=== PATIENT | male | born 1965 | race Hispanic/Latino ===

== ENCOUNTER 2020-10-30 14:27 | Emergency (ER) | payer OTHER ==
--- NOTE | 2020-10-30 14:48 | Event Note ---
ED Screening Note Date of service: 10/30/20 Time: 14:49 ED Screening Note: 54-year-old male presents to the emergency room for left lower leg swelling and pain for over a week. Patient reports that he had an ultrasound done at [facility] radiology for DVT concern and resulted positive. Patient also reports he is Covid positive and has had shortness of breath last test was on 10/12/2020. This initial assessment/diagnostic orders/clinical plan/treatment(s) is/are subject to change based on patients health status, clinical progression and re- assessment by fellow clinical providers in the ED. Further treatment and workup at subsequent clinical providers discretion. Patient/guardian urged not to elope from the ED as their condition may be serious if not clinically assessed and managed. Initial orders include:
[2020-10-30 15:39] LABS: Hematocrit 41.1 % (35.5-45.6); Mean Corpuscular HGB Conc 34 % (32-34); Mean Corpuscular Volume 95 fl (84-94); Platelet Count 447 K/mm3 (140-440); Red Blood Count 4.32 M/mm3 (3.65-5.03); Red Cell Distribution Width 14.8 % (13.2-15.2)
[2020-10-30 15:49] LABS: INR 1.05 (0.87-1.13)
[2020-10-30 15:50] LABS: Partial Thromboplastin Time 26.3 Sec. (24.2-36.6)
--- NOTE | 2020-10-30 15:56 | XRay Report ---
CHEST 1 VIEW 10/30/2020 3:34 PM INDICATION / CLINICAL INFORMATION: sob. COMPARISON: None available. FINDINGS: SUPPORT DEVICES: None. HEART / MEDIASTINUM: No significant abnormality. LUNGS / PLEURA: No significant pulmonary or pleural abnormality. No pneumothorax. ADDITIONAL FINDINGS: No significant additional findings. IMPRESSION: No acute abnormality. Signer Name: Yonatan Hubbard MD Signed: 10/30/2020 3:52 PM Workstation Name: [id number]
[2020-10-30 16:14] LABS: Alanine Aminotransferase 170 units/L (7-56); Albumin 3.3 g/dL (3.9-5); BUN/Creatinine Ratio 27; Blood Urea Nitrogen 19 mg/dL (9-20); Calcium 8.8 mg/dL (8.4-10.2); Hemolysis Index 14
[2020-10-30] MEDS ORDERED: SODIUM CHLORIDE 0.9% 250ML 250 ML IV ONE (16:14)
[2020-10-30] MEDS ORDERED: ENOXAPARIN 100 MG/1 ML INJ SUB-Q STA (16:14)
[2020-10-30] MEDS ORDERED: oxyCODONE /ACETAMINOPHEN 5-325MG TAB PO ONE (16:16)
--- NOTE | 2020-10-30 16:16 | Emergency Department Report ---
ED General Adult HPI - General Chief complaint: Extremity Problem,Nontraumatic Stated complaint: LEG SWELLING;POSITIVE FOR DVT PUI?: Yes Time Seen by Provider: 10/30/20 15:09 Source: patient, RN notes reviewed Mode of arrival: Ambulatory Limitations: No Limitations - History of Present Illness Initial comments: The patient was evaluated in the emergency department for symptoms described in the history of present illness. He/she was evaluated in the context of the global COVID-19 pandemic, which necessitated consideration that the patient might be at risk for infection with the virus that causes COVID-19. Institutional protocols and algorithms that pertain to the evaluation of patients at risk for COVID-19 are in a state of rapid change based on information released by regulatory bodies including the CDC and federal and state organizations. These policies and algorithms were followed during the patient's care in the emergency department. Please note that these policies, procedures and recommendations changed on a rapid basis. During the entire history and physical examination, I had on complete personal protective equipment. The patient is a 54-year-old gentleman. He is not known to myself previously. Patient was diagnosed with COVID-19 in October 12 of this month. He does not have a local primary care doctor, but goes to an outpatient urgent care center. He had a lower extremity DVT study obtained by his outpatient provider, today, which demonstrated extensive DVT noted in the left lower extremity, from the right common femoral vein, to the popliteal vein, indicating acute DVT. Normal right lower extremity duplex study. Patient complains of left lower extremity pain and swelling for the past couple days to about a week. No significant headache. No chest pain. No abdominal pain. Positive shortness of breath. No hematemesis. No bright red blood per rectum. Currently taking Eliquis, 5 mg on a daily basis. Had intermittent shortness of breath. This has been going on since Covid. He was referred to the emergency room by the aforementioned provider for further evaluation. -: Gradual, days(s) Location: left, lower extremity Consistency: constant Improves with: rest Worsens with: movement - Related Data Home Medications Medication Instructions Recorded Confirmed Last Taken Apixaban [Eliquis] 5 mg PO DAILY 10/30/20 10/30/20 Unknown Aspirin 325 mg PO QDAY 10/30/20 10/30/20 Unknown Ipratropium/Albuterol Sulfate 1 ampul IH Q6HR PRN 10/30/20 10/30/20 Unknown [DUONEB *Not for PRN Use*] Montelukast [Singulair] 10 mg PO DAILY 10/30/20 10/30/20 Unknown Promethazine [Phenergan 6.25 mg/5 10 ml PO Q6H PRN 10/30/20 10/30/20 Unknown ml ORAL LIQ] methOCARBAMOL [Robaxin TAB] 500 mg PO Q6H PRN 10/30/20 10/30/20 Unknown Previous Rx's Medication Instructions Recorded Last Taken Type Apixaban [Eliquis] 5 mg PO BID #60 tablet 10/30/20 Unknown Rx Apixaban [Eliquis] 10 mg PO BID #24 tablet 10/30/20 Unknown Rx Allergies Allergy/AdvReac Type Severity Reaction Status Date / Time Penicillins Allergy Unknown Verified 10/30/20 14:36 ED Review of Systems ROS: Stated complaint: LEG SWELLING;POSITIVE FOR DVT Other details as noted in HPI Constitutional: malaise. denies: fever Eyes: denies: eye discharge ENT: denies: congestion Respiratory: shortness of breath. denies: wheezing Cardiovascular: denies: chest pain, syncope Gastrointestinal: denies: abdominal pain, hematemesis, melena, hematochezia Genitourinary: denies: dysuria Musculoskeletal: arthralgia, myalgia Skin: denies: lesions Neurological: weakness. denies: numbness, paresthesias Hematological/Lymphatic: denies: easy bleeding ED Past Medical Hx - Past Medical History Previous Medical History?: No - Surgical History Past Surgical History?: No - Medications Home Medications: Home Medications Medication Instructions Recorded Confirmed Last Taken Type Apixaban [Eliquis] 5 mg PO BID #60 tablet 10/30/20 Unknown Rx Apixaban [Eliquis] 5 mg PO DAILY 10/30/20 10/30/20 Unknown History Apixaban [Eliquis] 10 mg PO BID #24 tablet 10/30/20 Unknown Rx Aspirin 325 mg PO QDAY 10/30/20 10/30/20 Unknown History Ipratropium/Albuterol Sulfate 1 ampul IH Q6HR PRN 10/30/20 10/30/20 Unknown Hi story [DUONEB *Not for PRN Use*] Montelukast [Singulair] 10 mg PO DAILY 10/30/20 10/30/20 Unknown History Promethazine [Phenergan 6.25 mg/5 10 ml PO Q6H PRN 10/30/20 10/30/20 Unknown History ml ORAL LIQ] methOCARBAMOL [Robaxin TAB] 500 mg PO Q6H PRN 10/30/20 10/30/20 Unknown History ED Physical Exam - General Limitations: No Limitations General appearance: alert, in no apparent distress - Head Head exam: Present: atraumatic, normocephalic - Eye Eye exam: Present: normal appearance, EOMI. Absent: nystagmus - ENT ENT exam: Present: normal exam, normal orophraynx, mucous membranes moist, normal external ear exam - Neck Neck exam: Present: normal inspection, full ROM. Absent: tenderness, meningismus - Respiratory Respiratory exam: Present: normal lung sounds bilaterally. Absent: respiratory distress, wheezes, rales, rhonchi, stridor, decreased breath sounds - Cardiovascular Cardiovascular Exam: Present: regular rate, normal rhythm, normal heart sounds. Absent: bradycardia, tachycardia, irregular rhythm, systolic murmur, diastolic murmur, rubs, gallop - GI/Abdominal GI/Abdominal exam: Present: soft. Absent: distended, tenderness, guarding, rebound, rigid, pulsatile mass - Rectal Rectal exam: Present: deferred - Extremities Exam Extremities exam: Present: normal inspection, full ROM, tenderness, pedal edema, calf tenderness (There is left calf tenderness), other (2+ pulses noted in the bilateral upper and lower extremities. There is no long bony tenderness. The muscular compartments are soft. No pain with passive range of motion in the bilateral lower extremities. Left lower extremity is asymmetrically swollen when compared to the right lower extremity.) - Back Exam Back exam: Present: normal inspection, full ROM. Absent: tenderness, CVA tenderness (R), CVA tenderness (L), paraspinal tenderness, vertebral tenderness - Neurological Exam Neurological exam: Present: alert, oriented X3, normal gait, other (No facial droop. Tongue midline. Extraocular movements intact bilaterally. Facial sensation intact to light touch in V1, V2, V3 distribution bilaterally. 5 and a 5 strength in 4 extremities. Sensation intact to light touch in 4 extremities.). Absent: motor sensory deficit - Psychiatric Psychiatric exam: Present: flat affect - Skin Skin exam: Present: warm, dry, intact, normal color. Absent: rash ED Course Vital Signs 10/30/20 10/30/20 10/30/20 14:37 16:23 16:24 Temperature 97.6 F Pulse Rate 84 82 Respiratory 22 18 18 Rate Blood Pressure 134/86 Blood Pressure 132/86 [Left] O2 Sat by Pulse 95 96 96 Oximetry 10/30/20 17:10 Temperature Pulse Rate Respiratory 18 Rate Blood Pressure Blood Pressure [Left] O2 Sat by Pulse Oximetry - Reevaluation(s) Reevaluation #1: 10/30/20 17:23 Differential diagnosis, including but not limited to: DVT, pulmonary embolism, Covid lung, deconditioning Assessment and plan: 54-year-old gentleman, with a complaint of shortness of breath, and left lower extremity pain and swelling. He has had an outpatient DVT study which has demonstrated a DVT. He has no evidence of neurovascular compromise, muscular compartments are soft, and he is able to ambulate with a steady gait, without significant oxygen desaturation. He is already taking El iquis. We discussed risks of Eliquis, including potential for life-threatening bleeding, patient articulated understanding, and is agreeable to continuing Eliquis therapy. Because of his complaint of shortness of breath, and propensity for Covid patients to develop thromboembolic complications, and acute DVT, we obtained a CT scan of the chest to exclude/rule in pulmonary embolism. Given history, physical, recent outpatient diagnosis of DVT today, do not feel that patient can be adequately risk stratified for pulmonary embolism with a D-dimer, as he is not a low pretest probability. In addition, he has already taken his Eliquis today, so systemic anticoagulation is withheld at this time. We are awaiting CT scan results. Reassess after initial data points. Reevaluation #2: 10/30/20 17:48 CT scan of the chest negative for pulmonary embolism. Patient has only been taking 5 mg of Eliquis once daily, by his history, and by history from his . He will be given an additional dose of 10 mg today, and he will need to continue 10 mg twice daily, for the next 6 days. Then, convert to 5 mg twice daily thereafter. Suitable for discharge with outpatient follow-up at this time. ED Medical Decision Making - Lab Data Result diagrams: 10/30/20 15:17 10/30/20 15:17 Vital Signs 10/30/20 10/30/20 10/30/20 14:37 16:23 16:24 Temperature 97.6 F Pulse Rate 84 82 Respiratory 22 18 18 Rate Blood Pressure 134/86 Blood Pressure 132/86 [Left] O2 Sat by Pulse 95 96 96 Oximetry 10/30/20 17:10 Temperature Pulse Rate Respiratory 18 Rate Blood Pressure Blood Pressure [Left] O2 Sat by Pulse Oximetry Lab Results 10/30/20 10/30/20 10/30/20 Range/Units 15:17 15:17 15:17 WBC 13.4 H (4.5-11.0) K/mm3 RBC 4.32 (3.65-5.03) M/mm3 Hgb 14.0 (11.8-15.2) gm/dl Hct 41.1 (35.5-45.6) % MCV 95 H (84-94) fl MCH 32 (28-32) pg MCHC 34 (32-34) % RDW 14.8 (13.2-15.2) % Plt Count 447 H (140-440) K/mm3 Add Manual Diff Complete Total Counted 100 Seg Neuts % (Manual) 64.0 (40.0-70.0) % Lymphocytes % (Manual) 25.0 (13.4-35.0) % Monocytes % (Manual) 6.0 (0.0-7.3) % Eosinophils % (Manual) 3.0 (0.0-4.3) % Basophils % (Manual) 2.0 H (0.0-1.8) % Nucleated RBC % Not Reportable Seg Neutrophils # Man 8.6 H (1.8-7.7) K/mm3 Band Neutrophils # 0.0 K/mm3 Lymphocytes # (Manual) 3.4 (1.2-5.4) K/mm3 Abs React Lymphs (Man) 0.0 K/mm3 Monocytes # (Manual) 0.8 (0.0-0.8) K/mm3 Eosinophils # (Manual) 0.4 (0.0-0.4) K/mm3 Basophils # (Manual) 0.3 H (0.0-0.1) K/mm3 Metamyelocytes # 0.0 K/mm3 Myelocytes # 0.0 K/mm3 Promyelocytes # 0.0 K/mm3 Blast Cells # 0.0 K/mm3 WBC Morphology Not Reportable Hypersegmented Neuts Not Reportable Hyposegmented Neuts Not Reportable Hypogranular Neuts Not Reportable Smudge Cells Not Reportable Toxic Granulation Not Reportable Toxic Vacuolation Not Reportable Dohle Bodies Not Reportable Pelger-Huet Anomaly Not Reportable Adalberto Rods Not Reportable Platelet Estimate Not Reportable Clumped Platelets Not Reportable Plt Clumps, EDTA Not Reportable Large Platelets Not Reportable Giant Platelets Not Reportable Platelet Satelliting Not Reportable Plt Morphology Comment Not Reportable RBC Morphology Normal Dimorphic RBCs Not Reportable Polychromasia Not Reportable Hypochromasia Not Reportable Poikilocytosis Not Reportable Anisocytosis Not Reportable Microcytosis Not Reportable Macrocytosis Not Reportable Spherocytes Not Reportable Pappenheimer Bodies Not Reportable Sickle Cells Not Reportable Target Cells Not Reportable Tear Drop Cells Not Reportable Ovalocytes Not Reportable Helmet Cells Not Reportable [place] Bodies Not Reportable [place] Rings Not Reportable [place] Cells Not Reportable Bite Cells Not Reportable Crenated Cell Not Reportable Elliptocytes Not Reportable Acanthocytes (Spur) Not Reportable Rouleaux Not Reportable Hemoglobin C Crystals Not Reportable Schistocytes Not Reportable Malaria parasites Not Reportable Samm Bodies Not Reportable Hem Pathologist Commnt No PT 13.5 (12.2-14.9) Sec. INR 1.05 (0.87-1.13) APTT 26.3 (24.2-36.6) Sec. Sodium 141 (137-145) mmol/L Potassium 3.5 L (3.6-5.0) mmol/L Chloride 103.0 (98-107) mmol/L Carbon Dioxide 22 (22-30) mmol/L Anion Gap 20 mmol/L BUN 19 (9-20) mg/dL Creatinine 0.7 L (0.8-1.3) mg/dL Estimated GFR > 60 ml/min BUN/Creatinine Ratio 27 % Glucose 130 H (75-100) mg/dL Calcium 8.8 (8.4-10.2) mg/dL Magnesium (1.7-2.3) mg/dL Total Bilirubin 0.20 (0.1-1.2) mg/dL AST 66 H (5-40) units/L ALT 170 H (7-56) units/L Alkaline Phosphatase 210 H (35-129) units/L Total Creatine Kinase (55-170) units/L Troponin T (0.00-0.029) ng/mL Total Protein 7.4 (6.3-8.2) g/dL Albumin 3.3 L (3.9-5) g/dL Albumin/Globulin Ratio 0.8 % 10/30/20 Range/Units 15:17 WBC (4.5-11.0) K/mm3 RBC (3.65-5.03) M/mm3 Hgb (11.8-15.2) gm/dl Hct (35.5-45.6) % MCV (84-94) fl MCH (28-32) pg MCHC (32-34) % RDW (13.2-15.2) % Plt Count (140-440) K/mm3 Add Manual Diff Total Counted Seg Neuts % (Manual) (40.0-70.0) % Lymphocytes % (Manual) (13.4-35.0) % Monocytes % (Manual) (0.0-7.3) % Eosinophils % (Manual) (0.0-4.3) % Basophils % (Manual) (0.0-1.8) % Nucleated RBC % Seg Neutrophils # Man (1.8-7.7) K/mm3 Band Neutrophils # K/mm3 Lymphocytes # (Manual) (1.2-5.4) K/mm3 Abs React Lymphs (Man) K/mm3 Monocytes # (Manual) (0.0-0.8) K/mm3 Eosinophils # (Manual) (0.0-0.4) K/mm3 Basophils # (Manual) (0.0-0.1) K/mm3 Metamyelocytes # K/mm3 Myelocytes # K/mm3 Promyelocytes # K/mm3 Blast Cells # K/mm3 WBC Morphology Hypersegmented Neuts Hyposegmented Neuts Hypogranular Neuts Smudge Cells Toxic Granulation Toxic Vacuolation Dohle Bodies Pelger-Huet Anomaly Adalberto Rods Platelet Estimate Clumped Platelets Plt Clumps, EDTA Large Platelets Giant Platelets Platelet Satelliting Plt Morphology Comment RBC Morphology Dimorphic RBCs Polychromasia Hypochromasia Poikilocytosis Anisocytosis Microcytosis Macrocytosis Spherocytes Pappenheimer Bodies Sickle Cells Target Cells Tear Drop Cells Ovalocytes Helmet Cells [place] Bodies [place] Rings [place] Cells Bite Cells Crenated Cell Elliptocytes Acanthocytes (Spur) Rouleaux Hemoglobin C Crystals Schistocytes Malaria parasites Samm Bodies Hem Pathologist Commnt PT (12.2-14.9) Sec. INR (0.87-1.13) APTT (24.2-36.6) Sec. Sodium (137-145) mmol/L Potassium (3.6-5.0) mmol/L Chloride (98-107) mmol/L Carbon Dioxide (22-30) mmol/L Anion Gap mmol/L BUN (9-20) mg/dL Creatinine (0.8-1.3) mg/dL Estimated GFR ml/min BUN/Creatinine Ratio % Glucose (75-100) mg/dL Calcium (8.4-10.2) mg/dL Magnesium 1.90 (1.7-2.3) mg/dL Total Bilirubin (0.1-1.2) mg/dL AST (5-40) units/L ALT (7-56) units/L Alkaline Phosphatase (35-129) units/L Total Creatine Kinase 34 L (55-170) units/L Troponin T < 0.010 (0.00-0.029) ng/mL Total Protein (6.3-8.2) g/dL Albumin (3.9-5) g/dL Albumin/Globulin Ratio % - EKG Data -: EKG Interpreted by Fl EKG shows normal: sinus rhythm Rate: normal - EKG Data When compared to previous EKG there are: previous EKG unavailable 10/30/20 17:22 Sinus rhythm, 84 bpm. Normal axis, normal intervals, poor R wave progression, PAC. Abnormal EKG. Not a STEMI. - Radiology Data Radiology results: pending, report reviewed, image reviewed Outpatient DVT study reviewed and appreciated. Please note that there is a typo in this study, patient has an acute extensive left lower extremity DVT, not right lower extremity DVT. X-ray of the chest clear. CT scan of the chest: CTA CHEST WITH IV CONTRAST INDICATION: Dyspnea, left lower extremity DVT, Covid 19. TECHNIQUE: Axial CT images were obtained through the chest after injection of 100 cc Omnipaque 350 IV contrast. 3 plane MIP reconstructions were produced. All CT scans at this location are performed using CT dose reduction for ALARA by means of automated exposure control. COMPARISON: Chest one view from earlier today. FINDINGS: Respiratory motion artifact limits this exam. PULMONARY ARTERIES: No pulmonary emboli. AORTA AND ARTERIES: No significant abnormality. HEART: No significant abnormality. MEDIASTINUM: No significant abnormality. LUNGS: Mostly peripheral bilateral ground glass opacities are noted without a suspicious nodule or mass. No pneumothorax or pleural effusion. ADDITIONAL FI NDINGS: None. UPPER ABDOMEN: No acute findings. BONES: No acute abnormality. Mild degenerative changes throughout the spine. IMPRESSION: 1. No CT evidence for pulmonary embolism. 2. Bilateral viral type pneumonia. Signer Name: Claude Tate MD Signed: 10/30/2020 4:28 PM Workstation Name: [id number] Critical care attestation.: If time is entered above; I have spent that time in minutes in the direct care of this critically ill patient, excluding procedure time. ED Disposition Clinical Impression: Persistent shortness of breath after COVID-19 Left leg DVT Qualifiers: Affected thrombotic vein of extremity: other lower extremity vein Chronicity: acute Qualified Code(s): I82.492 - Acute embolism and thrombosis of other specified deep vein of left lower extremity Disposition: DC-01 TO HOME OR SELFCARE Is pt being admited?: No Does the pt Need Aspirin: No Condition: Stable Instructions: Shortness of Breath, Adult, [id number], COVID-19, Deep Vein Thrombosis Additional Instructions: Patient is given an additional dose of 10 mg of Eliquis orally tonight. For the next 6 days, patient should take 10 mg of Eliquis, twice daily. After that, patient should take Eliquis, 5 mg, twice daily for least 3 to 6 months. It is very important to follow-up with an outpatient primary care doctor, weigher packing, or vascular surgeon to determine length of treatment of Eliquis for blood clot. Patient may take [id number] Tylenol as needed for pain. Patient is found to have a left lower extremity DVT on outpatient ultrasound. DVT, blood clots are known complications of the Covid virus. It is important that the patient follow-up with the primary care doctor, weigher packing, or vascular surgeon for his left lower extremity DVT within the next week. Dr. Rhoades is a local vascular surgeon. Do not take Metformin medication for the next 2 days, if patient takes this medication. Please continue current outpatient medications otherwise. Complications of COVID-19 include blood clots, shortness of breath, malaise, fatigue and headache. Therefore, patient may be experiencing shortness of breath secondary to COVID-19 and deconditioning. Please continue to remain at home, self isolate, and self quarantine, until cleared to resume work/activities by your primary care doctor. Dr. Casiano is a local weigher packing. Dr. Grady Is a local primary care doctor. Please return to the emergency room right away with new pain, worsening pain, migration of pain, projectile vomiting, change in mental status, confusion, inability to tolerate liquid feeds, new, worsening or different symptoms not present on the initial emergency room evaluation. Prescriptions: Apixaban [Eliquis] 10 mg PO BID #24 tablet Apixaban [Eliquis] 5 mg PO BID #60 tablet Referrals: JOSEPH RHOADES MD [Staff Physician] - 3-5 Days AMAN CASIANO MD [Staff Physician] - 3-5 Days STEFANI GRADY MD [Staff Physician] - 3-5 Days Forms: Work/School Release Form(ED)
[2020-10-30 16:39] LABS: Total Cells Counted 100
[2020-10-30 16:40] LABS: RBC Morphology Normal
--- NOTE | 2020-10-30 17:32 | Cat Scan Report ---
CTA CHEST WITH IV CONTRAST INDICATION: Dyspnea, left lower extremity DVT, Covid 19. TECHNIQUE: Axial CT images were obtained through the chest after injection of 100 cc Omnipaque 350 IV contrast. 3 plane MIP reconstructions were produced. All CT scans at this location are performed using CT dose reduction for ALARA by means of automated exposure control. COMPARISON: Chest one view from earlier today. FINDINGS: Respiratory motion artifact limits this exam. PULMONARY ARTERIES: No pulmonary emboli. AORTA AND ARTERIES: No significant abnormality. HEART: No significant abnormality. MEDIASTINUM: No significant abnormality. LUNGS: Mostly peripheral bilateral ground glass opacities are noted without a suspicious nodule or ma ss. No pneumothorax or pleural effusion. ADDITIONAL FINDINGS: None. UPPER ABDOMEN: No acute findings. BONES: No acute abnormality. Mild degenerative changes throughout the spine. IMPRESSION: 1. No CT evidence for pulmonary embolism. 2. Bilateral viral type pneumonia. Signer Name: Claude Tate MD Signed: 10/30/2020 5:28 PM Workstation Name: [id number]
[2020-10-30] MEDS ORDERED: APIXABAN 5 MG TAB PO STA (17:45)
[2020-10-30 18:18] VITALS: BP 135/98
== END 2020-10-30 18:20 | disposition home or self-care (01) ==
LOC: ED 14:27
DX: I82.4Z2 Acute embolism and thrombosis of unspecified deep veins of left distal lower extremity (principal); U07.1 COVID-19; R06.02 Shortness of breath; Z79.899 Other long term (current) drug therapy; Z88.0 Allergy status to penicillin
CPT/HCPCS: 36415; 71045; 71275; 80053; 82550; 83735; 84484; 85007; 85025; 85610; 85730; 96360; 99285; J7050; Q9967

== ENCOUNTER 2021-03-10 13:53 | Outpatient (CLI) | payer OTHER ==
[2021-03-10 14:44] LABS: Blood Urea Nitrogen 10 mg/dL (9-20)
== END 2021-03-10 13:54 | disposition home or self-care (01) ==
LOC: CT 13:53
PROVIDERS: ATTEND Internal Medicine Hematology
DX: I82.220 Acute embolism and thrombosis of inferior vena cava (principal); I82.412 Acute embolism and thrombosis of left femoral vein
CPT/HCPCS: 36415; 71260; 74177; 82565; 84520; Q9967